=== PATIENT | female | born 1955 | race Caucasian/White ===

== ENCOUNTER 2018-12-04 11:51 | Day surgery (SDC) | payer OTHER ==
[~2018-12-04] VITALS: Ht 147.3 cm; Wt 71.2 kg
[2018-12-04 12:45] VITALS: BP 141/74; PULSE 75; RESP 19; Ht 147.3 cm; Wt 71.2 kg
[2018-12-04] MEDS ORDERED: VIT D3 PO (13:23)
[2018-12-04] MEDS ORDERED: OMEPRAZOLE PO (13:23)
[2018-12-04] MEDS ORDERED: MIDAZOLAM 1 MG/ML 2 ML INJ ONE ×2 (14:15)
[2018-12-04] MEDS ORDERED: FENTAnyl 50 MCG/ML VIAL ONE (14:15)
== END 2018-12-04 15:57 | disposition home or self-care (01) ==
LOC: GIL 11:51
PROVIDERS: ATTEND Internal Medicine
DX: Z12.11 Encounter for screening for malignant neoplasm of colon (principal); D12.3 Benign neoplasm of transverse colon; I10 Essential (primary) hypertension; E78.5 Hyperlipidemia, unspecified
CPT/HCPCS: 45380; 88305; J2250; J3010